=== PATIENT | female | born 1975 | race Hispanic/Latino ===

== ENCOUNTER → 2022-03-26 | Outpatient (CLI) | payer OTHER ==
[~2022-03-26] MED LIST: DOCU-116 PO; IBUP-2070 PO; IBUP-2077 PO; PREN-61 PO
== END | disposition home or self-care (01) ==
LOC: RAH 08:16
PROVIDERS: ATTEND Family Medicine
DX: Z12.31 Encounter for screening mammogram for malignant neoplasm of breast (principal)
CPT/HCPCS: 77067

== ENCOUNTER 2024-04-01 10:13 | Emergency (ER) | payer BC, OTHER ==
[~2024-04-01] VITALS: Ht 152.4 cm; Wt 99.8 kg
[2024-04-01] MEDS: Solu-medROL 125MG VIAL IVP ONE (11:17)
[2024-04-01] MEDS: FAMOTIDINE 20MG VIAL IV ONE (11:18)
[2024-04-01] MEDS ORDERED: PRED20TA3 PO (12:37)
[2024-04-01 12:52] VITALS: BP 147/95; PULSE 85; RESP 18; O2SAT 99
== END 2024-04-01 13:01 | disposition home or self-care (01) ==
LOC: EDH 10:13
DX: R22.9 Localized swelling, mass and lump, unspecified (principal); T45.0X5A Adverse effect of antiallergic and antiemetic drugs, initial encounter; F41.9 Anxiety disorder, unspecified; Z79.899 Other long term (current) drug therapy; Z98.890 Other specified postprocedural states; Y92.89 Other specified places as the place of occurrence of the external cause
CPT/HCPCS: 99284; 96374; 96375; J3490; J2919